=== PATIENT | male | born 1990 | race Two or more races ===

== ENCOUNTER 2017-02-01 00:16 | Emergency (ER) | payer SELFPAY ==
[~2017-02-01] VITALS: Ht 172.7 cm; Wt 70.0 kg
[2017-02-01 00:48] VITALS: BP 113/77
== END 2017-02-01 03:58 | disposition left against medical advice (07) ==
LOC: ED 03:52
DX: F10.220 Alcohol dependence with intoxication, uncomplicated (principal)
CPT/HCPCS: 99283